=== PATIENT | female | born 1980 | race Caucasian/White ===

== ENCOUNTER 2022-11-11 15:02 | Emergency (ER) | payer OTHER, SELFPAY ==
[2022-11-11 15:10] VITALS: BP 117/70; PULSE 68; RESP 17; TEMP 36.2; O2SAT 96; BMI 20.5
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
[2022-11-11 16:26] VITALS: BP 121/72; PULSE 68; RESP 16; O2SAT 97
== END 2022-11-11 16:28 | disposition home or self-care (01) ==
PROVIDERS: Emergency Provider Registered Nurse
DX: M54.2 Cervicalgia (principal); V89.2XXA Person injured in unspecified motor-vehicle accident, traffic, initial encounter
CPT/HCPCS: 99283